=== PATIENT | female | born 1965 | race Caucasian/White ===

== ENCOUNTER 2023-06-02 11:32 | Observation (INO) | payer SELFPAY ==
[~2023-06-02] VITALS: Ht 165.1 cm; Wt 77.3 kg
[~2023-06-02 11:32] MED LIST: LVT.15T
--- NOTE | 2023-06-02 12:23 | ED Respiratory ---
General Chief Complaint: Respiratory Problems Stated Complaint: SOA Source: patient Exam Limitations: no limitations History of Present Illness Date Seen by Provider: Jun 02, 2023 Time Seen by Provider: 12:12 Initial Comments 57-year-old female presents to the ER for concerns of trouble breathing. Reports that she has felt sick since 05/27/2023. She reports that last night she sweat all night, uncertain if she had a fever. She reports that yesterday she felt like she was going to pass out. She was seen at [facility] and given a DuoNeb and Solu-Medrol. They told her to come to the ER because her oxygen was in the mid 80s on room air. Patient refused ambulance transport to the ER. She denies headache, chest pain, abdominal pain, nausea, vomiting, diarrhea, body aches. [facility] did a COVID test that was negative. Allergies and Home Medications Allergies Coded Allergies: No Known Drug Allergies (Unverified Allergy, Mild, 01/19/09) Patient Home Medication List Home Medication List Reviewed: Yes Levothyroxine Sodium (Levothyroxine 150 Mcg Tab) 150 Mcg Tablet, (Reported) Entered as Reported by: ALDA MURPHY on 01/19/09 1250 Review of Systems Review of Systems Constitutional: see HPI Past Gmuggcm-Utptpv-Jpmmhz Hx Past Medical History Adenoidectomy, Tonsillectomy, Tubal Ligation Reproductive Disorders: No Sexually Transmitted Disease: No HIV/AIDS: No Hypothyroidsim Adverse Reaction/Blood Tranf: No Physical Exam Vital Signs - First Documented 06/02/23 06/02/23 11:40 14:00 Temp 37.2 Pulse 111 Resp 20 B/P (MAP) 169/118 (135) Pulse Ox 96 O2 Delivery Room Air O2 Flow Rate 2.00 Capillary Refill : Height: 5'5" Weight: 200lbs. oz. 90.659674xa; BMI Method:Stated General Appearance: WD/WN, no apparent distress Neck: supple, normal inspection Respiratory: no respiratory distress, no accessory muscle use, other (Coarse throughout) Cardiovascular: regular rate, rhythm Extremities: normal range of motion, normal inspection Neurologic/Psychiatric: alert, normal mood/affect Skin: normal color, warm/dry Focused Exam Lactate Level 06/02/23 12:50: Lactic Acid Level 1.85 Lactic Acid Level Laboratory Tests Test 06/02/23 12:50 Lactic Acid Level 1.85 MMOL/L (0.50-2.00) Progress/Results/Core Measures Suspected Sepsis SIRS Temperature: Pulse: Respiratory Rate: Laboratory Tests 06/02/23 11:45: White Blood Count 7.0 Blood Pressure / Mean: 06/02/23 12:50: Lactic Acid Level 1.85 Laboratory Tests 06/02/23 11:45: Creatinine 0.82, INR Comment 0.9, Platelet Count 279, Total Bilirubin 0.4 Results/Orders Lab Results Laboratory Tests Test 06/02/23 11:45 06/02/23 12:43 06/02/23 12:50 Range/Units White Blood Count 7.0 4.3-11.0 10^3/uL Red Blood Count 4.89 3.80-5.11 10^6/uL Hemoglobin 15.2 11.5-16.0 g/dL Hematocrit 45 35-52 % Mean Corpuscular Volume 93 80-99 fL Mean Corpuscular Hemoglobin 31 25-34 pg Mean Corpuscular Hemoglobin Concent 34 32-36 g/dL Red Cell Distribution Width 12.3 10.0-14.5 % Platelet Count 279 130-400 10^3/uL Mean Platelet Volume 10.6 9.0-12.2 fL Immature Granulocyte % (Auto) 0 % Neutrophils (%) (Auto) 53 42-75 % Lymphocytes (%) (Auto) 37 12-44 % Monocytes (%) (Auto) 6 0-12 % Eosinophils (%) (Auto) 3 0-10 % Basophils (%) (Auto) 1 0-10 % Neutrophils # (Auto) 3.7 1.8-7.8 10^3/uL Lymphocytes # (Auto) 2.6 1.0-4.0 10^3/uL Monocytes # (Auto) 0.5 0.0-1.0 10^3/uL Eosinophils # (Auto) 0.2 0.0-0.3 10^3/uL Basophils # (Auto) 0.1 0.0-0.1 10^3/uL Immature Granulocyte # (Auto) 0.0 0.0-0.1 10^3/uL Prothrombin Time 12.7 12.2-14.7 SEC INR Comment 0.9 0.8-1.4 Activated Partial Thromboplast Time 28 24-35 SEC Sodium Level 139 135-145 MMOL/L Potassium Level 3.8 3.6-5.0 MMOL/L Chloride Level 101 98-107 MMOL/L Carbon Dioxide Level 26 21-32 MMOL/L Anion Gap 12 5-14 MMOL/L Blood Urea Nitrogen 9 7-18 MG/DL Creatinine 0.82 0.60-1.30 MG/DL Estimat Glomerular Filtration Rate 84 BUN/Creatinine Ratio 11 Glucose Level 95 70-105 MG/DL Calcium Level 9.7 8.5-10.1 MG/DL Corrected Calcium 9.5 8.5-10.1 MG/DL Total Bilirubin 0.4 0.1-1.0 MG/DL Aspartate Amino Transf (AST/SGOT) 13 5-34 U/L Alanine Aminotransferase (ALT/SGPT) 7 0-55 U/L Alkaline Phosphatase 84 40-136 U/L Total Protein 7.5 6.4-8.2 GM/DL Albumin 4.3 3.2-4.5 GM/DL Influenza Type A (RT-PCR) Not Detected Not Detecte Influenza Type B (RT-PCR) Not Detected Not Detecte SARS-CoV-2 RNA (RT-PCR) Not Detected Not Detecte Lactic Acid Level 1.85 0.50-2.00 MMOL/L My Orders Orders - SIDDHARTH AVILES APRN Cbc And Automated Diff (06/02/23 12:18) Comprehensive Metabolic Panel (06/02/23 12:18) Blood Culture (06/02/23 12:18) Sputum Culture (06/02/23 12:18) Protime With Inr (06/02/23 12:18) Partial Thromboplastin Time (06/02/23 12:18) Chest 1 View, Ap/Pa Only (06/02/23 12:18) Ed Iv/Invasive Line Start (06/02/23 12:18) Vital Signs Adult Sepsis Patie Q15M (06/02/23 12:18) O2 (06/02/23 12:18) Remove Rings In Anticipation O (06/02/23 12:18) Lactic Acid Analyzer (06/02/23 12:18) Ns Iv 1000 Ml (Ns Iv 1000 Ml) (06/02/23 12:30) Albuterol Pre-Mix Nebs (Rt) (Albuterol (06/02/23 12:30) Svn Small Volume Nebulizer (06/02/23 12:21) Albuterol Pre-Mix Nebs (Rt) (Albuterol (06/02/23 12:30) Svn Small Volume Nebulizer (06/02/23 12:21) Albuterol Pre-Mix Nebs (Rt) (Albuterol (06/02/23 12:30) Svn Small Volume Nebulizer (06/02/23 12:21) Covid 19 Inhouse Test (06/02/23 12:22) Influenza A And B By Pcr (06/02/23 12:22) Ipratropium/Albuterol Inh Soln (Ipratrop (06/02/23 14:00) Albuterol Pre-Mix Nebs (Rt) (Albuterol (06/02/23 14:00) Albuterol Pre-Mix Nebs (Rt) (Albuterol (06/02/23 14:00) Albuterol Pre-Mix Nebs (Rt) (Albuterol (06/02/23 14:00) Albuterol Pre-Mix Nebs (Rt) (Albuterol (06/02/23 14:00) Albuterol Pre-Mix Nebs (Rt) (Albuterol (06/02/23 14:00) Ed Admission (Communication) (06/02/23 16:07) Medications Given in ED Current Medications Medications Dose Ordered Sig/Kimmy Route Start Time Stop Time Status Last Admin Dose Admin Albuterol Sulfate 2.5 mg ONCE ONCE INH 06/02/23 12:30 06/02/23 12:31 DC 06/02/23 12:31 2.5 MG Albuterol Sulfate 2.5 mg ONCE ONCE INH 06/02/23 12:30 06/02/23 12:31 DC 06/02/23 12:37 2.5 MG Albuterol Sulfate 2.5 mg ONCE ONCE INH 06/02/23 12:30 06/02/23 12:31 DC 06/02/23 12:45 2.5 MG Albuterol Sulfate 2.5 mg ONCE ONCE INH 06/02/23 14:00 06/02/23 14:01 DC 06/02/23 14:22 2.5 MG Albuterol Sulfate 2.5 mg ONCE ONCE INH 06/02/23 14:00 11/19/23 14:01 DC 06/02/23 14:22 2.5 MG Albuterol Sulfate 2.5 mg ONCE ONCE INH 06/02/23 14:00 06/02/23 14:01 DC 06/02/23 14:22 2.5 MG Albuterol Sulfate 2.5 mg ONCE ONCE INH 06/02/23 14:00 06/02/23 14:01 DC 06/02/23 14:23 2.5 MG Albuterol Sulfate 2.5 mg ONCE ONCE INH 06/02/23 14:00 06/02/23 14:01 DC 06/02/23 14:23 2.5 MG Albuterol/ Ipratropium 3 ml ONCE ONCE INH 06/02/23 14:00 06/02/23 14:01 DC 06/02/23 14:23 3 ML Vital Signs/I&O 06/02/23 06/02/23 06/02/23 06/02/23 11:40 11:40 12:31 12:37 Temp 37.2 Pulse 111 Resp 20 B/P (MAP) 169/118 (135) Pulse Ox 96 92 99 O2 Delivery Room Air Room Air Room Air Room Air 06/02/23 06/02/23 06/02/23 12:45 14:00 14:26 Pulse Ox 100 89 95 O2 Delivery Room Air Nasal Cannula Nasal Cannula O2 Flow Rate 2.00 2.00 Capillary Refill : Progress Note : Progress Note Patient seen and evaluated, resting in bed, no acute distress. Based on exam and symptoms, septic work-up initiated including CBC, CMP, coags, blood cultures x2, lactic acid, sputum culture, chest x-ray. COVID and flu testing ordered. 3 albuterol treatments ordered. 1358 Labs and chest x-ray reviewed. CBC grossly normal. CMP grossly normal. Lactic acid normal. Coags normal. COVID and flu negative. Chest x-ray shows flattened diaphragms which may be related to good inspiratory effort or air trapping. Does not show any pneumonia. Patient reevaluated. Lung sounds are still coarse. Oxygen saturation dropping into the upper 80s on room air. Hour- long albuterol breathing treatment ordered. DuoNeb also ordered. 1605 lung sounds still coarse towards the end of the hour-long treatment. Patient on 2 L via nasal cannula and getting breathing treatment and oxygen only at 90%. Due to this, patient needs to stay in the hospital for COPD exa cerbation. I called and spoke with Dr. Landrum, [facility] resident, regarding admission. She agrees to admit patient. Plan of care discussed with patient. Patient agrees to admission. Dr. Landrum will place admission orders. Diagnostic Imaging Diagonstic Imaging: Xray Plain Films/CT/US/NM/MRI: chest Comments [facility] [place], [place] NAME: TATIANA ORELLANA [facility] REC#: [id number] PT STATUS: REG ER : 1965 PHYSICIAN: SIDDHARTH AVILES APRN ADMIT DATE: 06/02/23/ER Signed Date of Exam:06/02/23 CHEST 1 VIEW, AP/PA ONLY INDICATION: Shortness of breath and cough. FINDINGS: The diaphragms are flattened. The lungs are clear without pneumonia or edema. There is no effusion. No pneumothorax. Heart size is normal. Pulmonary vasculature normal. There is no acute osseous abnormality. IMPRESSION:. Flattened diaphragms may relate to good inspiratory effort or air trapping. The lungs are clear. Dictated by: Dictated on workstation # [id number] Dict: 06/02/23 1312 Trans: 06/02/23 1422 [facility] [id number] Interpreted by: JOSÉ MIGUEL RODRÍGUEZ MD Electronically signed by: JOSÉ MIGUEL RODRÍGUEZ MD 06/02/23 1422 Departure Communication (Admissions) Time/Spoke to Admitting Phy: 16:05 Dr. Landrum, [facility] resident, see progress note. Dr. Jones is the attending. Impression Primary Impression: COPD exacerbation Disposition: ADMITTED INPATIENT Condition: Stable Admissions Decision to Admit Reason: Admit from ER (General) Decision to Admit/Date: Jun 02, 2023 Time/Decision to Admit Time: 16:05 Departure-Patient Inst. Referrals: [facility] ([place]) Primary Care Physician SIDDHARTH AVILES APRN Jun 02, 2023 12:23
[2023-06-02 12:25] LABS: BASOPHILS # (AUTO) 0.1 10^3/uL (0.0-0.1); BASOPHILS % (AUTO) 1 % (0-10); EOSINOPHILS # (AUTO) 0.2 10^3/uL (0.0-0.3); EOSINOPHILS % (AUTO) 3 % (0-10); HEMATOCRIT 45 % (35-52); HEMOGLOBIN 15.2 g/dL (11.5-16.0); LYMPHOCYTES # (AUTO) 2.6 10^3/uL (1.0-4.0); LYMPHOCYTES % (AUTO) 37 % (12-44); MEAN CORPUSCULAR HEMOGLOBIN 31 pg (25-34); MEAN CORPUSCULAR HGB CONC 34 g/dL (32-36); MEAN CORPUSCULAR VOLUME 93 fL (80-99); MEAN PLATELET VOLUME 10.6 fL (9.0-12.2); MONOCYTES # (AUTO) 0.5 10^3/uL (0.0-1.0); MONOCYTES % (AUTO) 6 % (0-12); NEUTROPHILS # (AUTO) 3.7 10^3/uL (1.8-7.8); NEUTROPHILS % (AUTO) 53 % (42-75); PLATELET COUNT 279 10^3/uL (130-400)
[2023-06-02 12:28] LABS: ALBUMIN 4.3 GM/DL (3.2-4.5); POTASSIUM 3.8 MMOL/L (3.6-5.0)
[2023-06-02 12:29] LABS: CALCIUM 9.7 MG/DL (8.5-10.1)
[2023-06-02 12:30] LABS: TOTAL PROTEIN 7.5 GM/DL (6.4-8.2)
[2023-06-02] MEDS ORDERED: RT-ALBUTEROL SULF 2.5 MG/3 ML PRE-MIX VIAL INH ONE ×8 (12:30→14:00)
[2023-06-02] MEDS ORDERED: NS IV 1000 ML 1,000 ML IV SCH (12:30)
[2023-06-02 12:32] LABS: BILIRUBIN,TOTAL 0.4 MG/DL (0.1-1.0)
[2023-06-02 12:34] LABS: CREATININE SERUM 0.82 MG/DL (0.60-1.30)
[2023-06-02 12:36] LABS: INR 0.9 (0.8-1.4); PROTHROMBIN TIME PATIENT 12.7 SEC (12.2-14.7)
--- NOTE | 2023-06-02 13:30 | Diagnostic Imaging Report ---
INDICATION: Shortness of breath and cough. FINDINGS: The diaphragms are flattened. The lungs are clear without pneumonia or edema. There is no effusion. No pneumothorax. Heart size is normal. Pulmonary vasculature normal. There is no acute osseous abnormality. IMPRESSION:. Flattened diaphragms may relate to good inspiratory effort or air trapping. The lungs are clear. Dictated by: Dictated on workstation # [id number]
[2023-06-02] MEDS ORDERED: RT-Ipratropium/Albuterol NEB 3 ML VIAL INH ONE (14:00)
--- NOTE | 2023-06-02 16:28 | History & Physical-Hospitalist ---
SIDDHARTH GUTIÉRREZ MD,RESIDENT 06/02/23 1628: History of Present Illness HPI/Chief Complaint Pt is a 57yo female with a medical history significant for HTN, COPD, tobacco use, who presents to ED for increased SOB. She was seen at [facility] earlier today where her SpO2 was reportedly in the 80s on RA, they recommended that she be seen in the ED as her symptoms did not improve after 1x duonebs and solumedrol. She reports that on Saturday she developed a runny nose and a cough and then she started to have progressively worse SOB. She is on RA at baseline. Will admit for COPD exacerbation. Source: patient Date Seen 06/02/23 Time Seen by a Provider: 16:45 Attending Physician [place] PCP Admitting Physician: Attending Physician: Referring Physician Date of Admission Home Medications & Allergies Home Medications Reviewed patient Home Medication Reconciliation performed by pharmacy medication reconciliations precision optics technician and/or nursing. Patients Allergies have been reviewed. Allergies Allergies Coded Allergies No Known Drug Allergies (Unverified Allergy, Mild, 01/19/09) Past Zclofhe-Epqzkv-Lrdwed Hx Patient Social History Tobacco Use?: Yes Tobacco type used: Cigarettes Smoking Status: Current Everyday Smoker Use of E-Cig and/or Vaping dev: No Substance use?: No Alcohol Use?: No Pt feels they are or have been: No Immunizations Up To Date First/Initial COVID19 Vaccinat: NOT VACC Current Status Advance Directives: No Communicates: Verbally Primary Language: Qatari Preferred Spoken Language: Qatari Implanted or Applied Medical D: None Past Medical History Surgeries: Adenoidectomy, Tonsillectomy, Tubal Ligation Sexually Transmitted Disease: No HIV/AIDS: No Hypothyroidsim Adverse Reaction/Blood Tranf: No Review of Systems Constitutional: diaphoresis EENTM: no symptoms reported Respiratory: short of breath Cardiovascular: no symptoms reported Gastrointestinal: no symptoms reported Musculoskeletal: no symptoms reported Skin: no symptoms reported Physical Exam Physical Exam Vital Signs Vital Signs - First Documented 06/02/23 06/02/23 06/02/23 11:40 14:00 18:20 Temp 37.2 Pulse 111 Resp 20 B/P (MAP) 169/118 (135) Pulse Ox 96 O2 Delivery Room Air O2 Flow Rate 2.00 FiO2 28 Capillary Refill : Less Than 3 Seconds Height, Weight, BMI Height: 5'5" Weight: 200lbs. oz. 90.283507mh; 28.00 BMI Method:Stated General Appearance: No Apparent Distress Respiratory: Chest Non Tender, No Accessory Muscle Use, No Respiratory Distress, Wheezing Cardiovascular: No Murmur, Tachycardia Gastrointestinal: Normal Bowel Sounds, Non Tender, Soft Extremity: No Calf Tenderness, No Pedal Edema Neurologic/Psychiatric: Alert, Oriented x3, No Motor/Sensory Deficits, Normal Mood/Affect Skin: Warm/Dry Lymphatic: No Adenopathy Results Results/Procedures Labs Laboratory Tests 06/02/23 11:45 Patient resulted labs reviewed. Assessment/Plan Admission Diagnosis COPD exacerbation Admission Status: Inpatient Order (span 2 midnights) Reason for Inpatient Admission: COPD exacerbation Diagnosis/Problems Diagnosis/Problems (1) COPD exacerbation Assessment & Plan: Increased SOB CXR: no acute cardiopulmonary findings Influenza A, B, COVID NEGATIVE SpO2 95% on 2L NC (baseline RA) PLAN: MAT protocol prednisone 40mg daily Breo treatments Duonebs Supplemental O2 as needed Ceftriaxone 1g daily (2) HTN (hypertension) Assessment & Plan: 169/118 on admission Denies CP CTA chest negative for PE PARL[facility]ID medication lisinopril-HCTZ 20-12.5 PLAN: Will start lisinopril 20 mg If SBP > 150 mg add hydrochlorothiazide 12.5 (3) Tachycardia Assessment & Plan: HR 110 on admission, possibly 2/2 IV steroids vs breathing treatments Denies palpitations PLAN: EKG - sinus tachycardia, non-specific T-wave abnormality Will CTM, with q4hr vitals Consider repeat EKG if tachycardia persists in AM (4) Hypothyroidism Assessment & Plan: PLAN: PARLOR MAID levothyroxine 112 mcg (5) Prediabetes Assessment & Plan: Pt reports wavering back and forth from prediabetes to diabetes No home medication PLAN: ACHS checks Slide scale A RACHID MCCOY DO 06/03/23 1018: History of Present Illness Source: patient Assessment/Plan Admission Diagnosis Admission Status: Observation Assessment and Plan I personally performed the bhatia portions of the visit, discussed case with resident and concur with resident documentation of history, physical exam, assessment and treatment plan unless otherwise noted. SIDDHARTH GUTIÉRREZ MD,RESIDENT Jun 02, 2023 16:28 RACHID MCCOY DO Jun 03, 2023 10:18
[2023-06-02 16:59] VITALS: BP 153/97
[2023-06-02 17:21] VITALS: BP 153/97
[2023-06-02] MEDS ORDERED: MELATONIN 3 MG TABLET PO PRN (17:30)
[2023-06-02] MEDS ORDERED: diphenhydrAMINE INJ 50 MG/ML VIAL IVP PRN (17:30)
[2023-06-02] MEDS ORDERED: ONDANSETRON INJECTION 4 MG/2 ML (SDV) IV PRN (17:30)
[2023-06-02] MEDS ORDERED: cefTRIAXone IV/IM 1,000 MG in NS (IVPB) 50 ML 50 ML IV SCH (17:30)
[2023-06-02] MEDS ORDERED: ACETAMINOPHEN 500 MG TABLET PO PRN (17:30)
[2023-06-02] MEDS ORDERED: ANTACID SUSPENSION 30 ML UDC PO PRN (17:30)
[2023-06-02] MEDS ORDERED: BISACODYL 10 MG SUPPOSITORY PR PRN (17:30)
[2023-06-02] MEDS ORDERED: ONDANSETRON 4 MG ORAL DISSOLVE TABLET PO PRN (17:30)
[2023-06-02] MEDS ORDERED: ENOXAPARIN 40 MG/0.4 ML SYRINGE SC SCH (17:30)
[2023-06-02] MEDS ORDERED: LACTULOSE SYRUP 10GM/15ML 30ML UDC PO PRN (17:30)
[2023-06-02] MEDS ORDERED: ACETAMINOPHEN 325 MG TABLET PO PRN (17:30)
[2023-06-02] MEDS ORDERED: CALCIUM CARBONATE 500 MG CHEW TABLET PO PRN (17:30)
[2023-06-02] MEDS ORDERED: diphenhydrAMINE 25 MG TABLET PO PRN (17:30)
[2023-06-02] MEDS ORDERED: MILK OF MAGNESIA 400 MG/5 ML 30 ML UDC PO PRN (17:30)
[2023-06-02 20:36] VITALS: BP 166/92
[2023-06-02] MEDS: DOCUSATE SODIUM 100 MG CAPSULE PO SCH (21:13)
[2023-06-02] MEDS: SENNOSIDES 8.6 MG TABLET PO SCH (21:13)
[2023-06-02] MEDS: inSUlin ASPART 1 UNIT/0.01 ML (PER UNIT) SC SCH (21:20)
[2023-06-02] MEDS ORDERED: RT-Ipratropium/Albuterol NEB 3 ML VIAL INH SCH (22:00)
[2023-06-02] MEDS: RT-LEVALBUTEROL 1.25 MG/3 ML NEBS (NON-FORMULARY) INH SCH (22:54)
[2023-06-02 23:02] VITALS: BP 132/80
[2023-06-03 03:35] VITALS: BP 110/70
[2023-06-03 05:13] LABS: HEMATOCRIT 37 % (35-52); HEMOGLOBIN 12.7 g/dL (11.5-16.0); MEAN CORPUSCULAR HEMOGLOBIN 31 pg (25-34); MEAN CORPUSCULAR HGB CONC 34 g/dL (32-36); MEAN CORPUSCULAR VOLUME 91 fL (80-99); MEAN PLATELET VOLUME 10.8 fL (9.0-12.2); PLATELET COUNT 235 10^3/uL (130-400)
[2023-06-03 05:27] LABS: ALBUMIN 3.6 GM/DL (3.2-4.5); POTASSIUM 4.1 MMOL/L (3.6-5.0)
[2023-06-03 05:28] LABS: CALCIUM 9.3 MG/DL (8.5-10.1)
[2023-06-03 05:29] LABS: TOTAL PROTEIN 6.2 GM/DL (6.4-8.2)
[2023-06-03 05:31] LABS: BILIRUBIN,TOTAL 0.2 MG/DL (0.1-1.0)
[2023-06-03 05:33] LABS: CREATININE SERUM 0.78 MG/DL (0.60-1.30)
[2023-06-03] MEDS: inSUlin ASPART 1 UNIT/0.01 ML (PER UNIT) SC SCH ×2 (05:33→11:18)
[2023-06-03] MEDS ORDERED: LEVOTHYROXINE 112 MCG TABLET PO SCH (06:30)
[2023-06-03] MEDS ORDERED: predniSONE 20 MG TABLET PO SCH (07:00)
[2023-06-03 07:14] VITALS: BP 128/76
[2023-06-03] MEDS: RT-LEVALBUTEROL 1.25 MG/3 ML NEBS (NON-FORMULARY) INH SCH (07:39)
[2023-06-03] MEDS ORDERED: FLUTICASONE/VILANTEROL 100/25 MCG (14 DOSES) IH SCH (08:00)
[2023-06-03] MEDS: SENNOSIDES 8.6 MG TABLET PO SCH (09:01)
[2023-06-03] MEDS: DOCUSATE SODIUM 100 MG CAPSULE PO SCH (09:01)
--- NOTE | 2023-06-03 10:47 | Physical Therapy Evaluation ---
PT Evaluation-General Medical Diagnosis Admission Date Jun 02, 2023 at 16:32 Medical Diagnosis: COPD exacerbation Onset Date: Jun 02, 2023 Therapy Diagnosis Therapy Diagnosis: debility Height/Weight Height (Feet): 5 Height (Inches): 5 Weight (Pounds): 200 Precautions Precautions/Isolations: Standard Precautions Referral Physician: Robert Reason for Referral: Evaluation/Treatment Medical History Pertinent Medical History: COPD Current History ER secondary to SOA Reviewed History: Yes Social History Home: Single Level Current Living Status: Alone Prior Prior Level of Function SCALE: Activities may be completed with or without assistive devices. 6-Nxojrzfhzi-vvuwvol completes the activity by him/herself with no assistance from a helper. 5-Set-up or Clean-up Assistance-helper sets up or cleans up; patient completes activity. [place] assists only prior to or following the activity. 4-Supervision or Touching Assistance-helper provides verbal cues and/or touching/steadying and/or contact guard assistance as patient completes activity. Assistance may be provided throughout the activity or intermittently. 3-Partial/Moderate Assistance-helper does LESS THAN HALF the effort. [place] lifts, holds or supports trunk or limbs, but provides less than half the effort. 2-Substantial/Maximal Assistance-helper does MORE THAN HALF the effort. [place] lifts or holds trunk or limbs and provides more than half the effort. 8-Jlxpiuwkp-wswzjw does ALL the effort. Patient does none of the effort to complete the activity. Or, the assistance of 2 or more helpers is required for the patient to complete the activity. If activity was not attempted, code reason: 7-Patient Refused. 9-Not Applicable-not attempted and the patient did not perform the activity before the current illness, exacerbation or injury. 10-Not Attempted due to Environmental Limitations-(lack of equipment, weather restraints, etc.). 88-Not Attempted due to Medical Conditions or Safety Concerns. Bed Mobility: 6 Transfers (B,C,W/C): 6 Gait: 6 Stairs: 6 Indoor Mobility (Ambulation): Independent Stairs: Independent Prior Devices Use: None PT Evaluation-Current Subjective Patient agrees to therapy. Objective Patient Orientation: Normal For Age ROM/Strength ROM Lower Extremities bilateral LE WFL Strength Lower Extremities 5/5 grossly bilateral LE Integumentary/Posture Bowel Incontinence: No Bladder Incontinence: No Posture WFL Neuromuscular (Tone, Coordination, Reflexes) grossly intact Sensory Vision: Functional Hearing: Functional Transfers Lying to Sitting/Side of Bed(Q: 6 Sit to Stand (QC): 6 Chair/Noi-go-Qtwhb Xfer(QC): 6 Gait Mode of Locomotion: Walk Anticipated Mode of Locomotion: Walk Walk 10 feet (QC): 6 Walk 50 ft with 2 Turns(QC): 6 Walk 150 ft (QC): 6 Distance: 300' Gait Assistive Device: None Comments/Gait Description safe and functional with no deviation Balance Sitting Static: Normal Sitting Dynamic: Normal Standing Static: Normal Standing Dynamic: Normal Picking up an Object (QC): 6 Assessment/Needs Patient SAO2 90% RA with activity. Physician notified. Patient is currently independent with all gross motor skills and does not require skilled PT intervention at this time. Rehab Potential: Fair PT Plan Treatment/Plan Treatment Plan: Discontinue PT Treatment Duration: Jun 03, 2023 Frequency: 1 time per week Estimated Hrs Per Day: .25 hour per day Patient and/or Family Agrees t: Yes Time Time In: 1001 Time Out: 1013 DATE: Jun 03, 2023 Total Billed Treatment Time: 12 Total Billed Treatment 1 visit [facility] 12 min JEM SANDS PT Jun 03, 2023 10:47
--- NOTE | 2023-06-03 10:54 | Occupational Therapy Eval ---
OT Evaluation-General/PLF Medical Diagnosis Admission Date Jun 02, 2023 at 16:32 Medical Diagnosis: COPD exacerbation Onset Date: Jun 02, 2023 Therapy Diagnosis Therapy Diagnosis: weakness Height/Weight Height (Feet): 5 Height (Inches): 5 Weight (Pounds): 200 Precautions Precautions/Isolations: Standard Precautions Referral Physician: Robert Matt Reason: Evaluation/Treatment Medical History Pertinent Medical History: COPD Current History TITRATING 02 Reviewed History: Yes Social History Home: Single Level Current Living Status: Alone ADL-Prior Level of Function SCALE: Activities may be completed with or without assistive devices. 8-Ussastdqbn-qztharf completes the activity by him/herself with no assistance from a helper. 5-Set-up or Clean-up Assistance-helper sets up or cleans up; patient completes activity. [place] assists only prior to or following the activity. 4-Supervision or Touching Assistance-helper provides verbal cues and/or touching/steadying and/or contact guard assistance as patient completes activity. Assistance may be provided throughout the activity or intermittently. 3-Partial/Moderate Assistance-helper does LESS THAN HALF the effort. [place] lifts, holds or supports trunk or limbs, but provides less than half the effort. 2-Substantial/Maximal Assistance-helper does MORE THAN HALF the effort. [place] lifts or holds trunk or limbs and provides more than half the effort. 1-Betieedgo-qpovfc does ALL the effort. Patient does none of the effort to complete the activity. Or, the assistance of 2 or more helpers is required for the patient to complete the activity. If activity was not attempted, code reason: 7-Patient Refused. 9-Not Applicable-not attempted and the patient did not perform the activity before the current illness, exacerbation or injury. 10-Not Attempted due to Environmental Limitations-(lack of equipment, weather restraints, etc.). 88-Not Attempted due to Medical Conditions or Safety Concerns. Self Care: Independent Functional Cognition: Independent Drive Self: Yes OT Current Status Subjective Agreeable to participate. Pain Location: No Pain Reported Mental Status/Objective Patient Orientation: Person, Place, Time, Situation Attachments: Oxygen Current Dentures/Partials: Yes Hand Dominance: Right Upper Extremity ROM BUE ROM WFLs Upper Extremity Coordination INTACT, sway w/ ambulation Upper Extremity Sensation intact Upper Extremity Strength 4/5 grossly ADL-Treatment Eating (QC): 6 Oral Hygiene (QC): 6 Shower/Bathe Self (QC): 7 Upper Body Dressing (QC): 6 On/Off Footwear (QC): 6 Toileting Hygiene (QC): 6 Picks object off floor w/o LOB, no ADs needed Education OT Patient Education: Progress toward Goal/Update tx plan, Purpose of tx/functional activities, Reviewed precautions, Rehab process Teaching Recipient: Patient Teaching Methods: Demonstration Response to Teaching: Return Demonstration OT Fpc Goals Fpc Goals 1=Demonstrate adherence to instructed precautions during ADL tasks. 2=Patient will verbalize/demonstrate understanding of assistive devices/modifications for ADL. 3=Patient will improve strength/tolerance for activity to enable patient to perform ADL's. OT Education/Plan Problem List/Assessment Assessment: No Skilled OT Needs ID'd Discharge Recommendations Plan/Recommendations: Discontinue OT Treatment Plan/Plan of Care Patient would benefit from OT for education, treatment and training to promote independence in ADL's, mobility, safety and/or upper extremity function for ADL's. Plan of Care: OTHER (OT EVAL ONLY) Treatment Duration: Jun 03, 2023 Frequency: 1 time per week Estimated Hrs Per Day: .25 hour per day Agreement: Yes Rehab Potential: Guarded Time Start Time: 10:03 Stop Time: 10:13 DATE: Jun 03, 2023 Total Time Billed (hr/min): 10 Billed Treatment Time EVL 10 min YG SHAH OT Jun 03, 2023 10:54
[2023-06-03 11:23] VITALS: BP 125/75
--- NOTE | 2023-06-03 11:42 | Discharge Summary ---
Diagnosis/Chief Complaint Date of Admission Jun 02, 2023 at 16:32 Date of Discharge 06/03/23 Admission Diagnosis Admission Diagnosis AECOPD HTN Hypothyroidism Pre DM Discharge Diagnosis See Above Discharge Summary-Simple/Stand Consultations Discharge Physical Examination Allergies: Coded Allergies: No Known Drug Allergies (Unverified , 01/19/09) Vitals & I&Os Vital Sign - Last 12Hours Date Time Temp Pulse Resp B/P (MAP) Pulse Ox O2 Delivery O2 Flow Rate FiO2 06/03/23 11: 37.0 87 17 125/75 (92) 95 Room Air 06/03/23 08:49 1.00 06/02/23 18:20 28 Intake and Output 06/02/23 23:59 Intake Total 1530 ml Output Total 200 ml Balance 1330 ml General Appearance: Alert, Oriented X3, No Acute Distress Respiratory: Normal Air Movement, Other (Basilar wheezing, normal work of breathing) Cardiovascular: Regular Rate Abdominal: Normal Bowel Sounds, Soft, No Tenderness, No Masses Extremities: No Edema, No Tenderness/Swelling Neuro: Normal Speech Hospital Course See final discharge diagnosis. Discharge Condition at discharge Stable Instructions to patient/family Please see electronic discharge instructions given to patient. Discharge Medications Reviewed and agree with Discharge Medication list on patient's Discharge Instruction sheet ALEX RICHARDS MD Jun 03, 2023 11:42
[2023-06-03] MEDS ORDERED: IPRA3AMP31 IH (11:46)
[2023-06-03] MEDS ORDERED: LISI20TA26 PO (11:46)
[2023-06-03] MEDS ORDERED: CEFD300C3 PO (11:46)
[2023-06-03] MEDS ORDERED: PRD20T PO (11:46)
--- NOTE | 2023-06-03 11:47 | Discharge Summary ---
Discharge [facility] Discharge Medications New, Converted or Re-Newed RX: Transmitted to Pharmacy New Medications: Cefdinir (Cefdinir) 300 Mg Capsule 300 MG PO BID for 5 Days, #10 CAP Ipratropium/Albuterol Sulfate (Iprat-Albut 0.5-3(2.5) mg/3 ml) 0.5 Mg-3 Mg (2.5 Mg Base)/3 Ml Ampul.neb 3 ML IH Q6H PRN for SHORTNESS OF BREATH, #1 EACH Prednisone (Prednisone) 20 Mg Tab 20 MG PO DAILY, #20 TAB Take 3 tabs(60mg)daily x3 days Take 2 tab daily x 3 days take 1 tab daily x3 days then 1/2 tab daily x 4 days Done Lisinopril (Lisinopril) 20 Mg Tablet 20 MG PO DAILY, #30 TAB Continued Medications: Levothyroxine Sodium (Levothyroxine 150 Mcg Tab) 150 Mcg Tablet Patient Instructions Goal/Follow Up Appt: 1 week with PCP Patient Instructions: Make sure to complete your antibiotics and steroids Activity & Diet Discharge Diet: No Restrictions Activity as Tolerated: Yes ALEX RICHARDS MD Jun 03, 2023 11:47
[2023-06-03] MEDS ORDERED: IBUP-2473 PO (12:50)
[2023-06-03] MEDS ORDERED: LISI1TAB46 PO (12:52)
[2023-06-03] MEDS ORDERED: LEVO112C4 PO (12:52)
== END 2023-06-03 13:33 | disposition home or self-care (01) ==
LOC: EDUNIT# 11:32 → ER 11:35 → UNDOADMOB 16:32 → 4TH 16:32 → UNDODISOB 06-03 13:33 → 4TH 06-03 13:47
PROVIDERS: ADMIT Internal Medicine; ATTEND Family Medicine
DX: J44.1 Chronic obstructive pulmonary disease with (acute) exacerbation (principal); I10 Essential (primary) hypertension; E03.9 Hypothyroidism, unspecified; R73.03 Prediabetes; R00.0 Tachycardia, unspecified; F17.210 Nicotine dependence, cigarettes, uncomplicated; Z79.890 Hormone replacement therapy
CPT/HCPCS: 71045; 80053 ×2; 82947 ×2; 83605; 85025; 85027; 85610; 85730; 87040; 87636; 93005; 94640 ×5; 94664; 94760 ×2; 96360; 96366; 96372 ×2; 97161; 97165; 99284; G0378; 36415